=== PATIENT | male | born 1945 | race Caucasian/White ===

== ENCOUNTER 2024-08-20 09:49 | Observation (INO) ==
[2024-08-20 10:24] LABS: Basophils # (Auto) 0.03 K/mcL (0.00-0.30); Basophils % (Auto) 0.4 % (0.0-2.0); Eosinophils # (Auto) 0.22 K/mcL (0.00-0.70); Eosinophils % (Auto) 3.0 % (0.0-7.0); Hematocrit 39.0 % (40.1-51.0); Hemoglobin 11.9 g/dL (13.7-17.5); Lymphocytes # (Auto) 1.50 K/mcL (1.50-4.80); Lymphocytes % (Auto) 20.3 % (15.5-49.0); Mean Corpuscular HGB Conc 30.5 g/dL (31.0-36.0); Monocytes # (Auto) 0.92 K/mcL (0.10-0.90); Monocytes % (Auto) 12.4 % (1.0-12.0); Neutrophils % (Auto) 63.8 % (38.0-78.0); Platelet Count 202 K/mcL (140-440); RBC 4.04 M/mcL (4.63-6.08); WBC 7.4 K/mcL (4.5-11.0)
[2024-08-20 10:43] LABS: ALT/SGPT 20 U/L (<40); AST/SGOT 15 U/L (<40); Albumin 3.5 gm/dL (3.2-5.2); Albumin/Globulin Ratio 1.2 (1.0-2.3); Alkaline Phosphatase 83 U/L (39-117); Anion Gap 11.0 (8.0-16.0); Bilirubin,Total 0.3 mg/dL (0.1-1.0); Blood Urea Nitrogen 53 mg/dL (8-23); Calcium 9.5 mg/dL (8.6-10.4); Carbon Dioxide 19 mmol/L (22-30); Chloride 118 mmol/L (96-108); Globulin 3.0 gm/dL (2.2-3.7); Glucose 124 mg/dL (70-105); Potassium 5.8 mmol/L (3.3-5.1); Sodium 148 mmol/L (133-145)
[2024-08-20] MEDS: DEXTROSE 50% 50 ML VIAL IV ONE ×2 (11:00→13:29)
[2024-08-20] MEDS: INSULIN REGULAR, HUMAN 1 UNIT/0.01 ML UNIT IV ONE (11:00)
[2024-08-20] MEDS: 0.9 % SODIUM CHLORIDE 500 ML IV ONE (11:00)
[2024-08-20] MEDS: FUROSEMIDE 40 MG/4 ML VIAL IV ONE ×2 (11:01→22:05)
[2024-08-20 12:59] LABS: Anion Gap 9.0 (8.0-16.0); Blood Urea Nitrogen 52 mg/dL (8-23); Calcium 9.5 mg/dL (8.6-10.4); Carbon Dioxide 22 mmol/L (22-30); Chloride 114 mmol/L (96-108); Glucose 57 mg/dL (70-105); Potassium 5.6 mmol/L (3.3-5.1); Sodium 145 mmol/L (133-145)
[2024-08-20 14:52] LABS: Anion Gap 8.0 (8.0-16.0); Blood Urea Nitrogen 52 mg/dL (8-23); Calcium 9.2 mg/dL (8.6-10.4); Carbon Dioxide 22 mmol/L (22-30); Chloride 109 mmol/L (96-108); Glucose 175 mg/dL (70-105); Potassium 5.9 mmol/L (3.3-5.1); Sodium 139 mmol/L (133-145)
[2024-08-20] MEDS: SODIUM ZIRCONIUM CYCLOSILICATE 10 GM PACKET PO ONE (15:10)
[2024-08-20] MEDS: FUROSEMIDE 100 MG/10 ML VIAL IV ONE (15:10)
[2024-08-20] MEDS: ALBUTEROL SULFATE 2.5 MG/3 ML NEBULIZER NEB ONE (15:31)
[2024-08-20] MEDS: CALCIUM GLUCONATE 4.65 MEQ in DEXTROSE 5% IN WATER 50 ML IV ONE (17:20)
[2024-08-20] MEDS ORDERED: ACETAMINOPHEN 325 MG TABLET PO PRN (17:54)
[2024-08-20] MEDS ORDERED: IPRATROPIUM/ALBUTEROL 3 ML AMPUL.NEB NEB PRN (17:54)
[2024-08-20] MEDS ORDERED: DEXTROSE 50% 50 ML VIAL IV PRN (17:54)
[2024-08-20] MEDS ORDERED: DEXTROSE 31 GM ORAL.SUSP PO PRN (17:54)
[2024-08-20] MEDS: INSULIN LISPRO 1 UNIT/0.01 ML UNIT SQ SCH (17:59)
[2024-08-20] MEDS: FUROSEMIDE 40 MG/4 ML VIAL IV SCH (18:01)
[2024-08-20] MEDS: 0.9 % SODIUM CHLORIDE 1,000 ML IV SCH (18:01)
[2024-08-20 21:11] LABS: Anion Gap 14.0 (8.0-16.0); Blood Urea Nitrogen 52 mg/dL (8-23); Calcium 9.6 mg/dL (8.6-10.4); Carbon Dioxide 18 mmol/L (22-30); Chloride 114 mmol/L (96-108); Glucose 153 mg/dL (70-105); Potassium 5.9 mmol/L (3.3-5.1); Sodium 146 mmol/L (133-145)
[2024-08-20] MEDS: 0.9 % SODIUM CHLORIDE 10 ML SYRINGE IV SCH (21:54)
[2024-08-20] MEDS: SENNOSIDES 1 TABLET PO SCH (22:05)
[2024-08-20] MEDS: SODIUM ZIRCONIUM CYCLOSILICATE 10 GM PACKET PO SCH (22:05)
[2024-08-20] MEDS: DOCUSATE SODIUM 100 MG CAPSULE PO SCH (22:06)
[2024-08-21 04:36] LABS: Basophils # (Auto) 0.02 K/mcL (0.00-0.30); Basophils % (Auto) 0.3 % (0.0-2.0); Eosinophils # (Auto) 0.20 K/mcL (0.00-0.70); Eosinophils % (Auto) 3.1 % (0.0-7.0); Hematocrit 34.2 % (40.1-51.0); Hemoglobin 10.9 g/dL (13.7-17.5); Lymphocytes # (Auto) 1.46 K/mcL (1.50-4.80); Lymphocytes % (Auto) 22.8 % (15.5-49.0); Mean Corpuscular HGB Conc 31.9 g/dL (31.0-36.0); Monocytes # (Auto) 0.89 K/mcL (0.10-0.90); Monocytes % (Auto) 13.9 % (1.0-12.0); Neutrophils % (Auto) 59.7 % (38.0-78.0); Platelet Count 198 K/mcL (140-440); RBC 3.63 M/mcL (4.63-6.08); WBC 6.4 K/mcL (4.5-11.0)
[2024-08-21 04:52] LABS: Anion Gap 14.0 (8.0-16.0); Blood Urea Nitrogen 55 mg/dL (8-23); Calcium 9.2 mg/dL (8.6-10.4); Carbon Dioxide 22 mmol/L (22-30); Chloride 116 mmol/L (96-108); Glucose 143 mg/dL (70-105); Potassium 5.0 mmol/L (3.3-5.1); Sodium 152 mmol/L (133-145)
[2024-08-21] MEDS: 0.45 % SODIUM CHLORIDE 1,000 ML IV SCH (08:10)
[2024-08-21] MEDS ORDERED: SUCRALFATE 1 GM TABLET PO PRN (08:15)
[2024-08-21] MEDS ORDERED: DOCUSATE SODIUM 100 MG CAPSULE PO PRN (08:15)
[2024-08-21] MEDS ORDERED: NITROGLYCERIN 0.4 MG TAB.SUBL SL PRN (08:19)
[2024-08-21] MEDS: PANTOPRAZOLE 40 MG TABLET PO SCH (08:31)
[2024-08-21] MEDS: METOPROLOL SUCCINATE 25 MG TAB.XL.24H PO SCH (08:31)
[2024-08-21] MEDS: APIXABAN 5 MG TABLET PO SCH (08:31)
[2024-08-21] MEDS: FINASTERIDE 5 MG TABLET PO SCH (08:36)
[2024-08-21 10:26] LABS: Estimated Average Glucose(eAG) 154.0 mg/dL; Hemoglobin A1C 7.0 % Hgb (4.0-6.0)
[2024-08-21] MEDS: LORazepam 2 MG/ML VIAL IV ONE (12:08)
[2024-08-21] MEDS: ONDANSETRON 4 MG/2 ML VIAL IV PRN (12:18)
[2024-08-21 13:00] LABS: Anion Gap 12.0 (8.0-16.0); Blood Urea Nitrogen 54 mg/dL (8-23); Calcium 9.2 mg/dL (8.6-10.4); Carbon Dioxide 21 mmol/L (22-30); Chloride 107 mmol/L (96-108); Glucose 154 mg/dL (70-105); Potassium 4.8 mmol/L (3.3-5.1); Sodium 140 mmol/L (133-145)
[2024-08-21] MEDS: DIGOXIN 125 MCG TABLET PO SCH (14:17)
[2024-08-21 16:42] VITALS: TEMP 97.9; O2SAT 97
[2024-08-21] MEDS ORDERED: ATORVASTATIN 40 MG TABLET PO SCH (21:00)
== END 2024-08-21 16:10 | disposition home or self-care (01) ==
LOC: MEDSUR 09:49 → ED 09:49 → MEDSUR 17:53
PROVIDERS: ADMIT Internal Medicine; ATTEND Internal Medicine